=== PATIENT | female | born 1980 | race Caucasian/White ===

== ENCOUNTER 2021-09-26 12:29 | Outpatient (CLI) | payer OTHER ==
[~2021-09-26 12:29] MED LIST: NIFE60TA3; SYNTHROID50 MCG
== END 2021-09-26 12:43 | disposition home or self-care (01) ==
LOC: SONOGRAMA 12:29
PROVIDERS: ATTEND Physical Medicine & Rehabilitation
DX: M77.01 Medial epicondylitis, right elbow (principal)